=== PATIENT | female | born 1950 | race American Indian/Alaskan Native ===

== ENCOUNTER 2022-04-03 16:28 | Inpatient (IN) | payer MEDICARE ==
[2022-04-03] MEDS ORDERED: MORPHINE 4 MG/1 ML INJ IV ONE (18:19)
[2022-04-03] MEDS ORDERED: ONDANSETRON 4 MG/2 ML INJ IV ONE (18:19)
--- NOTE | 2022-04-03 18:25 | Emergency Department Report ---
ED General Adult HPI - General Chief complaint: Chest Pain Stated complaint: CHEST PAIN Time Seen by Provider: 04/03/22 17:48 Source: patient, EMS Mode of arrival: Stretcher Limitations: No Limitations - History of Present Illness Initial comments: Patient presents to the emergency department the chief complaint of left-sided chest pain that radiates into her left forearm. Patient states the pain started at 12:30 AM. Patient states prior to this chest pain she had nausea with vomiting. Patient also complains of diffuse abdominal pain that started 2 hours after the onset of chest pain. Patient states she has a history of diabetes and hypertension -: Sudden Location: chest Radiation: other (Left forearm) Severity scale (0 -10): 7 Quality: aching, crushing Consistency: constant Improves with: none Worsens with: none Associated Symptoms: nausea/vomiting - Related Data Allergies Allergy/AdvReac Type Severity Reaction Status Date / Time Iodinated Contrast Media AdvReac Unknown Verified 04/03/22 16:36 orange AdvReac Unknown Verified 04/03/22 16:36 ED Review of Systems ROS: Stated complaint: CHEST PAIN Other details as noted in HPI Comment: All other systems reviewed and negative Constitutional: denies: chills, fever Eyes: denies: eye pain, eye discharge, vision change ENT: denies: ear pain, throat pain Respiratory: denies: cough, shortness of breath, wheezing Cardiovascular: chest pain. denies: palpitations Endocrine: no symptoms reported Gastrointestinal: abdominal pain, nausea, vomiting. denies: diarrhea Genitourinary: denies: urgency, dysuria, discharge Musculoskeletal: denies: back pain, joint swelling, arthralgia Skin: denies: rash, lesions Neurological: denies: headache, weakness, paresthesias Psychiatric: denies: anxiety, depression Hematological/Lymphatic: denies: easy bleeding, easy bruising ED Past Medical Hx - Past Medical History Hx Hypertension: Yes Hx Diabetes: Yes - Surgical History Past Surgical History?: Yes Additional Surgical History: RIGHT SHOULDER SURGERY 2010 - Social History Smoking Status: Never Smoker Substance Use Type: None ED Physical Exam - General Limitations: No Limitations General appearance: alert, in no apparent distress - Head Head exam: Present: atraumatic, normocephalic - Eye Eye exam: Present: normal appearance, PERRL, EOMI - ENT ENT exam: Present: mucous membranes dry - Neck Neck exam: Present: normal inspection - Respiratory Respiratory exam: Present: normal lung sounds bilaterally. Absent: respiratory distress - Cardiovascular Cardiovascular Exam: Present: regular rate, normal rhythm. Absent: systolic murmur, diastolic murmur, rubs, gallop - GI/Abdominal GI/Abdominal exam: Present: soft, tenderness, normal bowel sounds, other (Tender to palpation diffusely). Absent: distended - Extremities Exam Extremities exam: Present: normal inspection - Back Exam Back exam: Present: normal inspection - Neurological Exam Neurological exam: Present: alert, oriented X3, CN II-XII intact. Absent: motor sensory deficit - Psychiatric Psychiatric exam: Present: normal affect, normal mood - Skin Skin exam: Present: warm, dry, intact, normal color. Absent: rash ED Course Vital Signs 04/03/22 04/03/22 04/03/22 16:34 17:27 18:13 Temperature 98.5 F 97.8 F 98.2 F Pulse Rate 96 H 94 H 96 H Respiratory 18 20 20 Rate Blood Pressure 144/77 Blood Pressure 143/68 144/77 139/75 [Left] O2 Sat by Pulse 100 98 96 Oximetry ED Medical Decision Making - Lab Data Result diagrams: 04/03/22 18:21 04/03/22 18:21 Lab Results 04/03/22 04/03/22 04/03/22 Range/Units 18:21 18:21 18:21 WBC 9.1 (4.5-11.0) K/mm3 RBC 4.87 (3.65-5.03) M/mm3 Hgb 13.2 (10.1-14.3) gm/dl Hct 41.2 (30.3-42.9) % MCV 85 (79-97) fl MCH 27 L (28-32) pg MCHC 32 (30-34) % RDW 14.4 (13.2-15.2) % Plt Count 270 (140-440) K/mm3 Lymph % (Auto) 14.4 (13.4-35.0) % Luna % (Auto) 2.6 (0.0-7.3) % Eos % (Auto) 0.1 (0.0-4.3) % Baso % (Auto) 0.6 (0.0-1.8) % Lymph # (Auto) 1.3 (1.2-5.4) K/mm3 Luna # (Auto) 0.2 (0.0-0.8) K/mm3 Eos # (Auto) 0.0 (0.0-0.4) K/mm3 Baso # (Auto) 0.1 (0.0-0.1) K/mm3 Seg Neutrophils % 82.3 H (40.0-70.0) % Seg Neutrophils # 7.5 (1.8-7.7) K/mm3 PT 13.3 (12.2-14.9) Sec. INR 0.89 (0.87-1.13) APTT 26.9 (24.2-36.6) Sec. Sodium 135 L (137-145) mmol/L Potassium 4.0 (3.6-5.0) mmol/L Chloride 99.9 (98-107) mmol/L Carbon Dioxide 23 (22-30) mmol/L Anion Gap 16 mmol/L BUN 16 (7-17) mg/dL Creatinine 0.6 (0.6-1.2) mg/dL Estimated GFR > 60 ml/min BUN/Creatinine Ratio 27 % Glucose 377 H (65-100) mg/dL Calcium 9.3 (8.4-10.2) mg/dL Total Bilirubin 0.40 (0.1-1.2) mg/dL AST 14 (5-40) units/L ALT 14 (7-56) units/L Alkaline Phosphatase 111 (35-129) units/L Troponin T 0.036 H (0.00-0.029) ng/mL NT-Pro-B Natriuret Pep (0-900) pg/mL Total Protein 7.9 (6.3-8.2) g/dL Albumin 4.1 (3.9-5) g/dL Albumin/Globulin Ratio 1.1 % Triglycerides 83 (2-149) mg/dL Cholesterol 207 H (50-199) mg/dL LDL Cholesterol Direct 123 (50-130) mg/dL HDL Cholesterol 69 H (40-59) mg/dL Cholesterol/HDL Ratio 3.00 % Lipase 13 (13-60) units/L 04/03/22 Range/Units 18:21 WBC (4.5-11.0) K/mm3 RBC (3.65-5.03) M/mm3 Hgb (10.1-14.3) gm/dl Hct (30.3-42.9) % MCV (79-97) fl MCH (28-32) pg MCHC (30-34) % RDW (13.2-15.2) % Plt Count (140-440) K/mm3 Lymph % (Auto) (13.4-35.0) % Luna % (Auto) (0.0-7.3) % Eos % (Auto) (0.0-4.3) % Baso % (Auto) (0.0-1.8) % Lymph # (Auto) (1.2-5.4) K/mm3 Luna # (Auto) (0.0-0.8) K/mm3 Eos # (Auto) (0.0-0.4) K/mm3 Baso # (Auto) (0.0-0.1) K/mm3 Seg Neutrophils % (40.0-70.0) % Seg Neutrophils # (1.8-7.7) K/mm3 PT (12.2-14.9) Sec. INR (0.87-1.13) APTT (24.2-36.6) Sec. Sodium (137-145) mmol/L Potassium (3.6-5.0) mmol/L Chloride (98-107) mmol/L Carbon Dioxide (22-30) mmol/L Anion Gap mmol/L BUN (7-17) mg/dL Creatinine (0.6-1.2) mg/dL Estimated GFR ml/min BUN/Creatinine Ratio % Glucose (65-100) mg/dL Calcium (8.4-10.2) mg/dL Total Bilirubin (0.1-1.2) mg/dL AST (5-40) units/L ALT (7-56) units/L Alkaline Phosphatase (35-129) units/L Troponin T (0.00-0.029) ng/mL NT-Pro-B Natriuret Pep 71.53 (0-900) pg/mL Total Protein (6.3-8.2) g/dL Albumin (3.9-5) g/dL Albumin/Globulin Ratio % Triglycerides (2-149) mg/dL Cholesterol (50-199) mg/dL LDL Cholesterol Direct (50-130) mg/dL HDL Cholesterol (40-59) mg/dL Cholesterol/HDL Ratio % Lipase (13-60) units/L - EKG Data -: EKG Interpreted by Me EKG shows normal: sinus rhythm Rate: normal - EKG Data Interpretation: other (Sinus rhythm with a QTC of 505/QTc [address] elevation) - Radiology Data Radiology results: report reviewed - Medical Decision Making Discussed results with patient Critical care attestation.: If time is entered above; I have spent that time in minutes in the direct care of this critically ill patient, excluding procedure time. ED Disposition Clinical Impression: Elevated troponin, Abdominal pain Disposition: HOME / SELF CARE / HOMELESS Is pt being admited?: Yes Does the pt Need Aspirin: Yes Condition: Fair Referrals: PRIMARY CARE, [Primary Care Provider] - 3-5 Days
--- NOTE | 2022-04-03 18:33 | XRay Report ---
CHEST 1 VIEW 04/03/2022 6:12 PM INDICATION / CLINICAL INFORMATION: Chest Pain. COMPARISON: 05/01/2012 FINDINGS: SUPPORT DEVICES: None. HEART / MEDIASTINUM: No significant abnormality. LUNGS / PLEURA: No significant pulmonary or pleural abnormality. No pneumothorax. ADDITIONAL FINDINGS: No significant additional findings. IMPRESSION: 1. No acute findings. Signer Name: Jermaine Minaya MD Signed: 04/03/2022 6:29 PM Workstation Name: [id number]
[2022-04-03 18:51] LABS: Basophils # (Auto) 0.1 K/mm3 (0.0-0.1); Basophils % (Auto) 0.6 % (0.0-1.8); Eosinophils % (Auto) 0.1 % (0.0-4.3); Hematocrit 41.2 % (30.3-42.9); Hemoglobin 13.2 gm/dl (10.1-14.3); Lymphocytes # (Auto) 1.3 K/mm3 (1.2-5.4); Lymphocytes % (Auto) 14.4 % (13.4-35.0); Mean Corpuscular HGB Conc 32 % (30-34); Mean Corpuscular Volume 85 fl (79-97); Monocytes # (Auto) 0.2 K/mm3 (0.0-0.8); Monocytes % (Auto) 2.6 % (0.0-7.3); Platelet Count 270 K/mm3 (140-440); Red Blood Count 4.87 M/mm3 (3.65-5.03); Red Cell Distribution Width 14.4 % (13.2-15.2)
[2022-04-03 19:02] LABS: INR 0.89 (0.87-1.13)
[2022-04-03 19:03] LABS: Partial Thromboplastin Time 26.9 Sec. (24.2-36.6)
[2022-04-03 19:19] LABS: Albumin 4.1 g/dL (3.9-5); Blood Urea Nitrogen 16 mg/dL (7-17); Calcium 9.3 mg/dL (8.4-10.2); Hemolysis Index 11
[2022-04-03 19:23] LABS: BUN/Creatinine Ratio 27
[2022-04-03 19:30] LABS: HDL Cholesterol 69 mg/dL (40-59); LDL Cholesterol,Direct 123 mg/dL (50-130)
--- NOTE | 2022-04-03 19:54 | Cat Scan Report ---
CT ABDOMEN AND PELVIS WITHOUT IV CONTRAST INDICATION: abdominal pain n/v. COMPARISON: None available. TECHNIQUE: All CT scans at this facility use dose modulation, automated exposure control, iterative reconstructi on or weight based dosing, when appropriate, to reduce radiation dose to as low as reasonably achieva ble. FINDINGS: Lung Bases: No significant abnormality. Skeletal System: No acute abnormality. ABDOMEN: Liver: No significant abnormality. Gallbladder: No significant abnormality. Bile Ducts: No significant abnormality. Adrenals: No significant abnormality. Right Kidney: No significant abnormality. Left Kidney: No significant abnormality. Pancreas: No significant abnormality. Spleen: No significant abnormality. Upper GI tract: No significant abnormality. Lymph Nodes: No significant adenopathy. Aorta: No significant abnormality. Additional Findings: No significant abnormality. PELVIS: Colon: No acute abnormality. Diverticulosis is noted. Urinary Bladder and Distal Ureters: No significant abnormality. Appendix: No significant abnormality. Lymph Nodes: No significant adenopathy. Additional Findings: None. IMPRESSION: 1. Within the limitations of non contrast technique, no acute process in the abdomen or pelvis. 2. Incidental findings, as above. Signer Name: Jermaine Minaya MD Signed: 04/03/2022 7:50 PM Workstation Name: [id number]
[2022-04-03 20:08] LABS: Alanine Aminotransferase 14 units/L (7-56)
[2022-04-03] MEDS ORDERED: hydrALAZINE 20 MG/1 ML INJ IV ONE (22:49)
[2022-04-03] MEDS ORDERED: ASPIRIN 81 MG TAB CHEW PO ONE (22:52)
[2022-04-03] MEDS ORDERED: HEPARIN 10,000 UNITS/10 ML VIAL IV PRN (23:03)
[2022-04-03] MEDS ORDERED: ACETAMINOPHEN 325 MG TAB PO PRN ×2 (23:08)
[2022-04-03] MEDS ORDERED: DEXTROSE 50% IN WATER (25GM) 50 ML SYRINGE IV PRN (23:08)
[2022-04-03] MEDS ORDERED: ONDANSETRON 4 MG/2 ML INJ IV PRN (23:08)
[2022-04-03] MEDS ORDERED: MORPHINE 4 MG/1 ML INJ IV PRN ×2 (23:08)
[2022-04-03] MEDS ORDERED: MAGNESIUM HYDROXIDE (MOM) ORAL LIQD UDC PO PRN (23:08)
[2022-04-03] MEDS ORDERED: NITROGLYCERIN 0.4 MG TAB SUBL SL PRN (23:08)
[2022-04-03] MEDS ORDERED: MORPHINE 2 MG/1 ML INJ IV PRN (23:08)
[2022-04-03] MEDS ORDERED: traMADol 50 MG TAB PO PRN (23:08)
--- NOTE | 2022-04-03 23:20 | History and Physical Report ---
History of Present Illness Date of examination: 04/03/22 Date of admission: 04/03/2022 Chief complaint: Chest Pain History of present illness: 72-year-old female with known history of hypertension and diabetes mellitus presented to the emergency room today complaining of chest pain. Chest pain is said to be left-sided and radiating towards the left upper extremity. Pain has been ongoing for the past few hours and has been no known relieving or exacerbating factor. She has had some associated nausea and vomiting . She also complained of some mild abdominal discomfort. Denies any hematuria or dysuria. Patient denies any headache or dizziness, denies any diaphoresis. Work-up in the emergency room today, lab reveals troponin of 0.036, EKG, chest x-ray, CT of the abdomen and pelvis were unremarkable. Urinalysis reveals UTI. Patient is being admitted for chest pain evaluation. Past History Past Medical History: diabetes, hypertension Past Surgical History: Other (RIGHT SHOULDER SURGERY 2010) Social history: no significant social history Family history: no significant family history Medications and Allergies Allergies Allergy/AdvReac Type Severity Reaction Status Date / Time Iodinated Contrast Media AdvReac Unknown Verified 04/03/22 16:36 orange AdvReac Unknown Verified 04/03/22 16:36 Active Meds: Active Medications Heparin Sodium (Porcine) (Heparin 10,000 Units/10 Ml Vial) 3,200 unit 40 unit/kg (3200 unit) IV Q6H PRN PRN Reason: Anti-Xa Assay < 0.1 units/ml Heparin Sodium/Sodium Chloride (Heparin/ 0.45% Nacl-25,000 Unit/500 Ml) 25,000 unit in 500 mls @ 20 mls/hr IV TITRATE RAMONA; Protocol Review of Systems Constitutional: no fever, no chills Ears, nose, mouth and throat: no nasal congestion, no sore throat Cardiovascular: chest pain, no palpitations Respiratory: shortness of breath, no cough Gastrointestinal: abdominal pain, nausea, vomiting, no diarrhea Genitourinary Female: no flank pain, no dysuria, no hematuria Musculoskeletal: no neck pain, no low back pain Integumentary: no rash, no pruritis Neurological: no headaches, no confusion Psychiatric: no anxiety, no depression Endocrine: no polyphagia, no polydipsia, no polyuria, no nocturia Exam - Constitutional Vitals: Temp Pulse Resp BP Pulse Ox 98.2 F 96 H 20 139/75 96 04/03/22 18:13 04/03/22 18:13 04/03/22 18:13 04/03/22 18:13 04/03/22 18:13 General appearance: Present: no acute distress, well-nourished - EENT Eyes: Present: PERRL, EOM intact. Absent: scleral icterus ENT: hearing intact, clear oral mucosa, dentition normal - Neck Neck: Present: supple, normal ROM - Respiratory Respiratory effort: normal Respiratory: bilateral: CTA - Cardiovascular Rhythm: regular Heart Sounds: Present: S1 & S2. Absent: gallop, systolic murmur, diastolic murmur, rub, click - Extremities Extremities: no ischemia, pulses intact, pulses symmetrical, No edema, normal temperature, normal color, Full ROM Peripheral Pulses: within normal limits - Abdominal General gastrointestinal: Present: soft, non-tender, non-distended, normal bowel sounds. Absent: mass - Integumentary Integumentary: Present: clear, warm, normal turgor. Absent: rash - Musculoskeletal Musculoskeletal: strength equal bilaterally - Psychiatric Psychiatric: appropriate mood/affect, intact judgment & insight, memory intact, cooperative - Neurologic Neurologic: CNII-XII intact, no focal deficits, moves all extremities HEART Score - HEART Score History: Moderately suspicious EKG: Non-specific Age: > 65 Risk factors: 1-2 risk factors Troponin: Troponin T 0.036 ng/mL (0.00-0.029) H 04/03/22 18:21 Troponin: 1-3x normal limit HEART Score: 6 Results - Labs CBC & Chem 7: 04/03/22 18:21 04/03/22 18:21 Labs: Abnormal lab results 04/03/22 04/03/22 Range/Units 18:21 18:21 MCH 27 L (28-32) pg Seg Neutrophils % 82.3 H (40.0-70.0) % Sodium 135 L (137-145) mmol/L Glucose 377 H (65-100) mg/dL Troponin T 0.036 H (0.00-0.029) ng/mL Cholesterol 207 H (50-199) mg/dL HDL Cholesterol 69 H (40-59) mg/dL Assessment and Plan Assessment: 1.Chest Pain 2.NSTEMI 3.Hypertension 4.D/Mellitus 5. UTI Plan: 1.Admit to telemetry.Check serial cardiac enzymes 2.Schedule for Echo,Stress test 3.Start on Sliding scale insulin. Monitor Accuchecks closely 4.Resume routine home medications. 5. Patient placed on empiric IV antibiotics for UTI. Will await culture results. DVT Prophylaxis:SQ Heparin Code Status: Full Code
[2022-04-03] MEDS ORDERED: HEPARIN/ 0.45% NACL DRIP 25,000 UNIT/500 ML BAG IV SCH (23:45)
[2022-04-04 06:09] LABS: Bilirubin,Urine Negative (Negative); Color,Urine Yellow (Yellow)
[2022-04-04 06:10] LABS: Blood,Urine Trace (Negative); Urobilinogen,Urine 0.2 mg/dL (<2.0)
[2022-04-04 06:15] LABS: Bacteria,Urine 4+ /HPF (Negative); Mucus,Urine FEW /HPF
[2022-04-04 06:38] LABS: Blood Urea Nitrogen 15 mg/dL (7-17); Calcium 8.7 mg/dL (8.4-10.2); Hemolysis Index 27
[2022-04-04 06:42] LABS: BUN/Creatinine Ratio 25
[2022-04-04] MEDS ORDERED: REGADENOSON 0.4 MG/5 ML INJ IV NR (08:47)
[2022-04-04] MEDS: cefTRIAXone/NS 1 GM/50 ML 1 GM/50 ML BAG IV SCH (08:49)
[2022-04-04] MEDS: INSULIN LISPRO 100 UNIT/ML SUB-Q SCH ×3 (08:50→21:00)
[2022-04-04] MEDS ORDERED: ASPIRIN EC 325 MG TAB PO SCH (10:00)
[2022-04-04] MEDS ORDERED: HEPARIN/NS 5000 UNIT/500ML 1,000 ML IR ONE (12:26)
[2022-04-04] MEDS ORDERED: VERAPAMIL 5 MG/2 ML INJ ONE (12:27)
[2022-04-04] MEDS ORDERED: LIDOCAINE (1%) 10 MG/1 ML VIAL 20 ML MDV ONE (12:28)
[2022-04-04] MEDS ORDERED: NITROGLYCERIN SYRINGE 3 ML ONE (12:28)
--- NOTE | 2022-04-04 12:45 | Consultation ---
History of Present Illness Consult date: 04/04/22 Consult reason: chest pain, elevated troponin History of present illness: Patient is a 72-year-old woman with hypertension and diabetes, who receives her medical care at [facility]. She has no prior cardiac history. She presented to the hospital with nonexertional chest pain, was evaluated and referred for admission. She describes symptoms which started with central and upper abdominal pain and cramping, followed by protracted vomiting, followed by chest pain radiating to the left arm. There was no diarrhea. There was no fever. Work-up in the hospital so far: ECG was normal sinus rhythm, normal ECG with no ST or T wave changes of ischemia. However, the troponin levels were elevated to the level of 0.14. Chest x-ray was normal-sized cardiac silhouette and clear lungs. Cardiology consultation was requested. Past History Past Medical History: diabetes, hypertension Past Surgical History: Other (RIGHT SHOULDER SURGERY 2010) Social history: no significant social history Family history: no significant family history Medications and Allergies Allergies Allergy/AdvReac Type Severity Reaction Status Date / Time Iodinated Contrast Media AdvReac Rash Verified 04/04/22 11:20 orange AdvReac Hives Verified 04/04/22 11:20 acidic fruits AdvReac Hives Uncoded 04/04/22 11:25 Home Medications Medication Instructions Recorded Confirmed Last Taken Type Carboxymethylcellulose Sodium 1 drop OU QDAY 04/04/22 04/04/22 Unknown History [Artificial Tears] Cholecalciferol Vit D3 [Vitamin D3 1,000 unit PO QDAY 04/04/22 04/04/22 04/03/22 History 1,000 UNIT TAB] Metformin HCl [metFORMIN] 1,000 mg PO QAM 04/04/22 04/04/22 04/03/22 History Multivitamin 1 tab PO QDAY 04/04/22 04/04/22 Unknown History NIFEdipine [Nifedipine ER] 120 mg PO QPM 04/04/22 04/04/22 04/03/22 History Triamterene/Hydrochlorothiazid 1 tab PO QDAY 04/04/22 04/04/22 04/03/22 History [Triamterene-Hctz 75-50 mg Tab] glipiZIDE [Glucotrol] 10 mg PO QDAY 04/04/22 04/04/22 04/03/22 History Active Meds: Active Medications Acetaminophen (Acetaminophen 325 Mg Tab) 650 mg PO Q4H PRN PRN Reason: Pain MILD(1-3)/Fever >100.5/PORTER Aspirin (Aspirin Ec 325 Mg Tab) 325 mg PO QDAY RAMONA Dextrose (Dextrose 50% In Water (25gm) 50 Ml Syringe) 50 ml IV Q30MIN PRN; Protocol PRN Reason: Hypoglycemia Heparin Sodium/Sodium Chloride (Heparin/ 0.45% Nacl-25,000 Unit/500 Ml) 25,000 unit in 500 mls @ 20 mls/hr IV TITRATE RAMONA; Protocol Last Admin: 04/04/22 00:33 Dose: 1,000 units/hr, 20 mls/hr Ceftriaxone Sodium (Rocephin/Ns 1 Gm/50 Ml) 1 gm in 50 mls @ 100 mls/hr IV Q24H RAMONA; Protocol Last Admin: 04/04/22 08:49 Dose: 100 mls/hr Sodium Chloride (Nacl 0.9% 500 Ml) 500 mls @ 50 mls/hr IV DIRECT RAMONA Stop: 04/04/22 22:59 Insulin Human Lispro (Insulin Lispro 100 Unit/Ml) 0 unit SUB-Q ACHS RAMONA; Protocol Last Admin: 04/04/22 08:50 Dose: 6 unit Magnesium Hydroxide (Magnesium Hydroxide (Mom) Oral Liqd Udc) 30 ml PO Q4H PRN PRN Reason: Constipation Morphine Sulfate (Morphine 2 Mg/1 Ml Inj) 2 mg IV Q4H PRN PRN Reason: Pain, Moderate (4-6) Last Admin: 04/04/22 00:34 Dose: 2 mg Morphine Sulfate (Morphine 4 Mg/1 Ml Inj) 4 mg IV Q4H PRN PRN Reason: Pain , Severe (7-10) Last Admin: 04/04/22 01:49 Dose: 4 mg Morphine Sulfate (Morphine 4 Mg/1 Ml Inj) 2 mg IV Q5MIN PRN PRN Reason: Chest Pain unrelieved by NTG Nitroglycerin (Nitroglycerin 0.4 Mg Tab Subl) 0.4 mg SL Q5M PRN PRN Reason: Chest Pain Ondansetron HCl (Ondansetron 4 Mg/2 Ml Inj) 4 mg IV Q8H PRN PRN Reason: Nausea And Vomiting Sodium Chloride (Sodium Chloride 0.9% 10 Ml Flush Syringe) 10 ml IV BID RAMONA Last Admin: 04/04/22 09:02 Dose: 10 ml Sodium Chloride (Sodium Chloride 0.9% 10 Ml Flush Syringe) 10 ml IV PRN PRN PRN Reason: LINE FLUSH Tramadol HCl (Tramadol 50 Mg Tab) 50 mg PO Q6H PRN PRN Reason: Pain, Moderate (4-6) Review of Systems Cardiovascular: chest pain, shortness of breath, no orthopnea, no palpitations, no rapid/irregular heart beat, no edema, no syncope, no lightheadedness Physical Examination Vital Signs Temp Pulse Resp BP Pulse Ox 98.5 F 96 H 18 143/68 100 04/03/22 16:34 04/03/22 16:34 04/03/22 16:34 04/03/22 16:34 04/03/22 16:34 General appearance: no acute distress HEENT: Positive: PERRL Neck: Positive: neck supple Cardiac: Positive: Reg Rate and Rhythm Lungs: Positive: clear to auscultation Neuro: Positive: Grossly Intact Abdomen: Positive: Soft Female genitourinary: deferred Skin: Positive: Clear Extremities: Absent: edema Results 04/03/22 18:21 04/04/22 05:21 Cardiac Enzymes 04/03/22 Range/Units 18:21 AST 14 (5-40) units/L Coagulation 04/03/22 Range/Units 18:21 PT 13.3 (12.2-14.9) Sec. INR 0.89 (0.87-1.13) APTT 26.9 (24.2-36.6) Sec. Lipids 04/03/22 Range/Units 18:21 Triglycerides 83 (2-149) mg/dL Cholesterol 207 H (50-199) mg/dL HDL Cholesterol 69 H (40-59) mg/dL Cholesterol/HDL Ratio 3.00 % CBC 04/03/22 Range/Units 18:21 WBC 9.1 (4.5-11.0) K/mm3 RBC 4.87 (3.65-5.03) M/mm3 Hgb 13.2 (10.1-14.3) gm/dl Hct 41.2 (30.3-42.9) % Plt Count 270 (140-440) K/mm3 Lymph # (Auto) 1.3 (1.2-5.4) K/mm3 [place] # (Auto) 0.2 (0.0-0.8) K/mm3 Eos # (Auto) 0.0 (0.0-0.4) K/mm3 Baso # (Auto) 0.1 (0.0-0.1) K/mm3 Comprehensive Metabolic Panel 04/03/22 04/04/22 Range/Units 18:21 05:21 Sodium 135 L 139 (137-145) mmol/L Potassium 4.0 4.0 (3.6-5.0) mmol/L Chloride 99.9 101.5 (98-107) mmol/L Carbon Dioxide 23 25 (22-30) mmol/L BUN 16 15 (7-17) mg/dL Creatinine 0.6 0.6 (0.6-1.2) mg/dL Glucose 377 H 312 H (65-100) mg/dL Calcium 9.3 8.7 (8.4-10.2) mg/dL AST 14 (5-40) units/L ALT 14 (7-56) units/L Alkaline Phosphatase 111 (35-129) units/L Total Protein 7.9 (6.3-8.2) g/dL Albumin 4.1 (3.9-5) g/dL EKG interpretations - Telemetry EKG Rhythm: Sinus Rhythm (Normal ECG) Assessment and Plan - Patient Problems (1) Chest pain Current Visit: Yes Status: Acute Plan to address problem: 72-year-old woman with hypertension and diabetes, who presents with chest pain. Chest pain is somewhat atypical, preceded by abdominal pain, nausea and vomiting, suggesting possible gastroesophageal reflux. ECGs were also normal. However, the troponin levels were elevated, suggesting a consideration of possible acute coronary syndrome. We have canceled the stress test that was ordered by the medical service. Instead, we will proceed with diagnostic cardiac catheterization and coronary angiography.
[2022-04-04] MEDS: SODIUM CHLORIDE 0.9% 500 ML 500 ML IV SCH ×2 (13:08→14:04)
--- NOTE | 2022-04-04 13:21 | Progress Note ---
Assessment and Plan Assessment and plan: #NSTEMI -troponin 0.036 -> 0.148 -Plan for cardiac cath today, continue PRN NG and heparin gtt for now -continue BB + statin -echocardiogram ordered -Cardiology following, assistance appreciated #Acute cystitis without hematuria -patient reported dysuria and UA shows pyuria, 4+ bacteria -UCx pending -Continue Rocephin #Hypertension -will resume home medications once reconciliation complete -goal SBP <160 while inpatient #Type 2 diabetes with hyperglycemia -patient takes oral medications at home -will continue with SSI and accuchecks while here #Advanced care planning -Disease education conducted, care plan discussed, diagnoses discussed, prognosis discussed, and patient acknowledges understanding with care plan -Time: +30 min History Interval history: Patient reports chest pain overnight that was relieved with nitroglycerin. She is currently chest pain-free and denies palpitations or shortness of breath. Patient examined by cardiology for cardiac cath. Hospitalist Physical - Physical exam Narrative exam: GENERAL: Well-developed well-nourished. In no acute distress. HEENT: Normocephalic. Atraumatic. NECK: Supple. CHEST/LUNGS: CTAB on room air HEART/CARDIOVASCULAR: RRR. No murmur, rubs or gallops appreciated. ABDOMEN: +BS. NT/ND. SKIN: No rashes noted. NEURO: No focal motor deficit. Follows all commands. MUSCULOSKELETAL: No joint effusion EXTREMITIES: No cyanosis, clubbing or edema. PSYCH: Cooperative. - Constitutional Vitals: Temp Pulse Resp BP Pulse Ox 97.7 F 78 18 157/87 99 04/04/22 07:45 04/04/22 07:45 04/04/22 03:58 04/04/22 07:45 04/04/22 10:00 General appearance: Present: no acute distress HEART Score - HEART Score EKG: Non-specific Age: > 65 Risk factors: 1-2 risk factors Troponin: Troponin T 0.118 ng/mL (0.00-0.029) H* D 04/04/22 08:25 Troponin: 1-3x normal limit Results - Labs CBC & Chem 7: 04/05/22 04:23 04/05/22 04:23 Labs: Laboratory Last Values WBC 9.1 K/mm3 (4.5-11.0) 04/03/22 18:21 RBC 4.87 M/mm3 (3.65-5.03) 04/03/22 18:21 Hgb 13.2 gm/dl (10.1-14.3) 04/03/22 18: Hct 41.2 % (30.3-42.9) 04/03/22 18:21 MCV 85 fl (79-97) 04/03/22 18:21 MCH 27 pg (28-32) L 04/03/22 18: MCHC 32 % (30-34) 04/03/22 18:21 RDW 14.4 % (13.2-15.2) 04/03/22 18:21 Plt Count 270 K/mm3 (140-440) 04/03/22 18:21 Lymph % (Auto) 14.4 % (13.4-35.0) 04/03/22 18: [place] % (Auto) 2.6 % (0.0-7.3) 04/03/22 18: Eos % (Auto) 0.1 % (0.0-4.3) 04/03/22 18: Baso % (Auto) 0.6 % (0.0-1.8) 04/03/22 18: Lymph # (Auto) 1.3 K/mm3 (1.2-5.4) 04/03/22 18: [place] # (Auto) 0.2 K/mm3 (0.0-0.8) 04/03/22 18:21 Eos # (Auto) 0.0 K/mm3 (0.0-0.4) 04/03/22 18: Baso # (Auto) 0.1 K/mm3 (0.0-0.1) 04/03/22 18: Seg Neutrophils % 82.3 % (40.0-70.0) H 04/03/22 18: Seg Neutrophils # 7.5 K/mm3 (1.8-7.7) 04/03/22 18: PT 13.3 Sec. (12.2-14.9) 04/03/22 18:21 INR 0.89 (0.87-1.13) 04/03/22 18: APTT 26.9 Sec. (24.2-36.6) 08/03/22 18:21 Heparin Anti-Xa Level < 0.10 U.I./ml (0.3-0.7) L 04/04/22 08:25 Sodium 139 mmol/L (137-145) 04/04/22 05:21 Potassium 4.0 mmol/L (3.6-5.0) 04/04/22 05:21 Chloride 101.5 mmol/L (98-107) 04/04/22 05:21 Carbon Dioxide 25 mmol/L (22-30) 04/04/22 05:21 Anion Gap 17 mmol/L 04/04/22 05:21 BUN 15 mg/dL (7-17) 04/04/22 05:21 Creatinine 0.6 mg/dL (0.6-1.2) 04/04/22 05:21 Estimated GFR > 60 ml/min 04/04/22 05:21 BUN/Creatinine Ratio 25 % 04/04/22 05:21 Glucose 312 mg/dL (65-100) H 04/04/22 05:21 POC Glucose 208 mg/dL (70-105) H 04/04/22 11:11 Calcium 8.7 mg/dL (8.4-10.2) 04/04/22 05:21 Total Bilirubin 0.40 mg/dL (0.1-1.2) 04/03/22 18:21 AST 14 units/L (5-40) 04/03/22 18:21 ALT 14 units/L (7-56) 04/03/22 18:21 Alkaline Phosphatase 111 units/L (35-129) 04/03/22 18:21 Troponin T 0.118 ng/mL (0.00-0.029) H* D 04/04/22 08:25 NT-Pro-B Natriuret Pep 71.53 pg/mL (0-900) 04/03/22 18:21 Total Protein 7.9 g/dL (6.3-8.2) 04/03/22 18:21 Albumin 4.1 g/dL (3.9-5) 04/03/22 18:21 Albumin/Globulin Ratio 1.1 % 04/03/22 18:21 Triglycerides 83 mg/dL (2-149) 04/03/22 18:21 Cholesterol 207 mg/dL (50-199) H 04/03/22 18:21 LDL Cholesterol Direct 123 mg/dL (50-130) 04/03/22 18:21 HDL Cholesterol 69 mg/dL (40-59) H 04/03/22 18:21 Cholesterol/HDL Ratio 3.00 % 04/03/22 18:21 Lipase 13 units/L (13-60) 04/03/22 18:21 Urine Color Yellow (Yellow) 04/04/22 05:30 Urine Turbidity Cloudy (Clear) 04/04/22 05:30 Urine pH 6.0 (5.0-7.0) 04/04/22 05:30 Ur Specific [place] 1.025 (1.003-1.030) 04/04/22 05:30 Urine Protein 30 mg/dl mg/dL (Negative) 04/04/22 05:30 Urine Glucose (UA) 1000 mg/dL (Negative) 04/04/22 05:30 Urine Ketones Negative mg/dL (Negative) 04/04/22 05:30 Urine Blood Trace (Negative) 04/04/22 05:30 Urine Nitrite Negative (Negative) 04/04/22 05:30 Urine Bilirubin Negative (Negative) 04/04/22 05:30 Urine Urobilinogen 0.2 mg/dL (<2.0) 04/04/22 05:30 Ur Leukocyte Esterase Trace (Negative) 04/04/22 05:30 Urine WBC (Auto) 98.0 /HPF (0.0-6.0) H 04/04/22 05:30 Urine RBC (Auto) 22.0 /HPF (0.0-6.0) 04/04/22 05:30 U Epithel Cells (Auto) 36.0 /HPF (0-13.0) H 04/04/22 05:30 Urine Bacteria (Auto) 4+ /HPF (Negative) 04/04/22 05:30 Urine Mucus Few /HPF 04/04/22 05:30 Urine Yeast (Budding) 2+ /HPF 04/04/22 05:30 Cabezas/IV: Voiding Method Toilet Active Medications - Current Medications Current Medications: Generic Name Dose Route Start Last Admin Trade Name Freq PRN Reason Stop Dose Admin Acetaminophen 650 mg 04/03/22 23:08 Acetaminophen 325 Mg Tab PO Q4H PRN Pain MILD(1-3)/Fever >100.5/PORTER Aspirin 325 mg 04/04/22 10:00 04/04/22 13:04 Aspirin Ec 325 Mg Tab PO 325 mg QDAY RAMONA Administration Dextrose 50 ml 04/03/22 23:08 Dextrose 50% In Water (25gm) 50 Ml Syringe IV Q30MIN PRN Hypoglycemia Protocol Heparin Sodium/Sodium Chloride 25,000 unit in 500 mls @ 20 mls/hr 04/03/22 23:45 04/04/22 00:33 Heparin/ 0.45% Nacl-25,000 Unit/500 Ml IV 1,000 units/hr TITRATE RAMONA 20 mls/hr Administration Protocol 1,000 UNITS/HR Ceftriaxone Sodium 1 gm in 50 mls @ 100 mls/hr 04/04/22 07:00 04/04/22 08:49 Rocephin/Ns 1 Gm/50 Ml IV 100 mls/hr Q24H RAMONA Administration Protocol Sodium Chloride 500 mls @ 50 mls/hr 04/04/22 13:00 04/04/22 13:08 Nacl 0.9% 500 Ml IV 04/04/22 22:59 50 mls/hr DIRECT RAMONA Administration Insulin Human Lispro 0 unit 04/04/22 07:30 04/04/22 08:50 Insulin Lispro 100 Unit/Ml SUB-Q 6 unit ACHS RAMONA Administration Protocol Magnesium Hydroxide 30 ml 04/03/22 23:08 Magnesium Hydroxide (Mom) Oral Liqd Udc PO Q4H PRN Constipation Morphine Sulfate 2 mg 04/03/22 23:08 04/04/22 00:34 Morphine 2 Mg/1 Ml Inj IV 2 mg Q4H PRN Administration Pain, Moderate (4-6) Morphine Sulfate 4 mg 04/03/22 23:08 04/04/22 01:49 Morphine 4 Mg/1 Ml Inj IV 4 mg Q4H PRN Administration Pain , Severe (7-10) Morphine Sulfate 2 mg 04/03/22 23:08 Morphine 4 Mg/1 Ml Inj IV Q5MIN PRN Chest Pain unrelieved by NTG Nitroglycerin 0.4 mg 04/03/22 23:08 Nitroglycerin 0.4 Mg Tab Subl SL Q5M PRN Chest Pain Ondansetron HCl 4 mg 04/03/22 23:08 Ondansetron 4 Mg/2 Ml Inj IV Q8H PRN Nausea And Vomiting Sodium Chloride 10 ml 04/04/22 10:00 04/04/22 09:02 Sodium Chloride 0.9% 10 Ml Flush Syringe IV 10 ml BID RAMONA Administration Sodium Chloride 10 ml 04/03/22 23:08 Sodium Chloride 0.9% 10 Ml Flush Syringe IV PRN PRN LINE FLUSH Tramadol HCl 50 mg 04/03/22 23:08 Tramadol 50 Mg Tab PO Q6H PRN Pain, Moderate (4-6) Nutrition/Malnutrition Assess - Dietary Evaluation Nutrition/Malnutrition Findings: Nutrition Notes Start: 04/04/22 12:19 Freq: Status: Active Protocol: Document 04/04/22 12:19 MARIO (Rec: 04/04/22 12:27 MARIO [id number]) Nutrition Notes Need for Assessment generated from: MD Order,Education Initial or Follow up Brief Note Current Diagnosis Diabetes,Hypertension Other Pertinent Diagnosis Chest Pain, NSTEMI, UTI. Current Diet Cardiac/Consistent Carbohydrates Diet (since L ). 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 Weight Status Obese Subjective/Other Information RD consult for nutrition education assessment. No reports available on Pt's PO intake of meals at the time , will assess at F/U. Pt is on Nasal Cannula, O2 saturation @ 99%, according to Physical Assessment History notes. Pt still in critical condition , not a candidate for Nutrition Education at the time, will assess feasibility on F/U. Percent of energy/protein needs met: Prescribed Cardiac/Consistent Carbohydrates Diet provides for energy/protein needs (1, 977 Kcal/86 g) during LOS. Nutrition Intervention Follow-Up By: 04/11/22 Additional Comments Nutrition education will be provided at F/U, if feasible. Continue monitoring food tolerance, %PO intake of meals , and BM.
[2022-04-04] MEDS ORDERED: diphenhydrAMINE 50 MG/ML VIAL ONE (13:50)
[2022-04-04] MEDS ORDERED: diphenhydrAMINE 50 MG/ML VIAL IV ONE (13:53)
[2022-04-04] MEDS ORDERED: fentaNYL 100 MCG/2 ML INJ ONE (14:01)
[2022-04-04] MEDS ORDERED: MIDAZOLAM 2 MG/2 ML INJ ONE (14:01)
[2022-04-04] MEDS: HEPARIN 10,000 UNITS/10 ML VIAL ONE ×2 (14:11→14:23)
[2022-04-04] MEDS ORDERED: HEPARIN/NS 5000 UNIT/500ML 500 ML IR ONE (14:40)
[2022-04-04] MEDS ORDERED: hydrALAZINE 20 MG/1 ML INJ ONE (14:48)
[2022-04-04] MEDS ORDERED: TICAGRELOR 90 MG TAB ONE (14:59)
[2022-04-04] MEDS ORDERED: HEPARIN 10,000 UNITS/10 ML VIAL ONE (14:59)
--- NOTE | 2022-04-04 15:04 | Event Note ---
Date: 04/04/22 Cardiac catheterization performed via the right radial approach, no complications. We found severe two-vessel disease with obstructive lesions in the mid LAD and mid obtuse marginal. Successful two-vessel coronary intervention with drug-eluting stents placed in the mid LAD and mid obtuse marginal. Patient will be placed on guideline directed medical therapy including dual antiplatelet therapy with baby aspirin and Brilinta.
[2022-04-04] MEDS ORDERED: SODIUM CHLORIDE 0.9% 1000 ML 1,000 ML IV SCH (15:15)
--- NOTE | 2022-04-04 15:39 | Cardiac Catherization Report ---
DATE OF SERVICE: 04/04/2022 CARDIAC CATHETERIZATION AND CORONARY ANGIOPLASTY REPORT REASON FOR PROCEDURE: The patient is a 72-year-old woman who presented with chest pain and elevated cardiac isoenzymes suggestive of a non-ST elevation myocardial infarction. A cardiac catheterization was recommended as part of an early invasive therapy. PROCEDURES: 1. Left heart catheterization. 2. Selective left and right coronary angiography. 3. Coronary angioplasty and stenting of the mid LAD. 4. Second vessel, coronary angioplasty and stenting of the mid obtuse marginal branch. 5. Sedation time start 1409, end 1447. DESCRIPTION OF PROCEDURE: The patient was prepped and draped in a sterile fashion after informed consent. The right radial cath site was prepped and draped after negative Sharan's test. The right radial artery was entered using Seldinger technique followed by placement of a 6-Azeri hydrophilic sheath. Routine radial cocktail was administered via the sheath. Selective left and right coronary angiography was performed using #3.5 left Dee and #4 right Dee. The angiograms were reviewed. CORONARY ANGIOGRAPHY: Left main coronary artery was angiographically normal. The left anterior descending artery contained a long, 95-99% stenosis of its mid segment. The circumflex artery consists of a large single obtuse marginal. There was an irregular 75-80% stenosis of the mid segment of the obtuse marginal. The right coronary artery was a large caliber, dominant vessel that contained mild diffuse ectasia and mild diffuse atherosclerosis with no significant obstructive lesions. CORONARY ANGIOPLASTY: The LAD was identified as the infarct related lesion, with additional severe lesion of the circumflex. We planned a 2-vessel intervention starting with the LAD. We selected a #3.5 XB guiding catheter and advanced to the left coronary ostium. A 0.014 inch Telecom Specialist 50 guidewire was directed into the LAD, across the lesional segment. The vessel was then predilated using a 3.0 mm balloon catheter. We then proceeded with a single, 3.0 x 22 mm drug-eluting stent covering the entire lesional segment and inflated to optimal pressures. Following stenting, there was an excellent angiographic result in the LAD, zero residual stenosis and DAO 3 flow. We then turned our attention to the circumflex artery. The Telecom Specialist 50 guidewire was withdrawn from the LAD and redirected into the circumflex. In a primary stenting maneuver, we deployed a 3.0 x 12 mm drug-eluting stent, covering the lesional segment of the obtuse marginal and inflated to optimal pressures. Following stenting, there was an excellent angiographic result, zero residual stenosis and DAO 3 flow maintained down the circumflex. Following the 2-vessel coronary intervention, the catheters and wires were removed, sheath removed and hemostasis achieved using a TR band. The patient was returned to the postprocedure unit in stable condition. There were no complications. CONCLUSION: 1. The patient was admitted with acute coronary syndrome, elevated troponin levels, non-ST elevation myocardial infarction. 2. Cardiac catheterization revealed severe 2-vessel coronary artery disease, 99% stenosis of the mid LAD and an 80% stenosis of the mid obtuse marginal branch of the circumflex. 3. Successful angioplasty and stenting of the mid LAD, with deployment of a 3.0 x 22 mm drug-eluting stent. 4. Successful second-vessel coronary intervention to the obtuse marginal with deployment of a 3.0 x 12 mm drug-eluting stent. RECOMMENDATIONS: The patient will be placed on guideline directed medical therapy including dual oral antiplatelet therapy. An echocardiogram will be ordered for left ventricular function and valvular function assessment. TID: [id number] RECEIPT: [id number] MARYAN
[2022-04-04] MEDS: LISINOPRIL 5 MG TAB PO SCH (17:32)
[2022-04-04] MEDS: METOPROLOL TARTRATE 50 MG TAB PO SCH ×2 (17:32→21:01)
--- NOTE | 2022-04-04 18:38 | Electrocardiograph Report ---
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
--- NOTE | 2022-04-04 18:45 | Electrocardiograph Report ---
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
--- NOTE | 2022-04-04 18:50 | Electrocardiograph Report ---
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
[2022-04-04] MEDS: TICAGRELOR 90 MG TAB PO SCH (21:00)
[2022-04-05 05:44] LABS: Basophils % (Auto) 0.6 % (0.0-1.8); Eosinophils # (Auto) 0.1 K/mm3 (0.0-0.4); Eosinophils % (Auto) 1.8 % (0.0-4.3); Hematocrit 37.4 % (30.3-42.9); Hemoglobin 11.9 gm/dl (10.1-14.3); Lymphocytes # (Auto) 2.6 K/mm3 (1.2-5.4); Lymphocytes % (Auto) 33.2 % (13.4-35.0); Mean Corpuscular HGB Conc 32 % (30-34); Mean Corpuscular Volume 85 fl (79-97); Monocytes # (Auto) 0.5 K/mm3 (0.0-0.8); Monocytes % (Auto) 6.8 % (0.0-7.3); Platelet Count 104 K/mm3 (140-440); Red Blood Count 4.39 M/mm3 (3.65-5.03); Red Cell Distribution Width 14.1 % (13.2-15.2)
[2022-04-05 06:05] LABS: Blood Urea Nitrogen 12 mg/dL (7-17); Calcium 8.7 mg/dL (8.4-10.2); Hemolysis Index 51
[2022-04-05 06:06] LABS: BUN/Creatinine Ratio 20
[2022-04-05] MEDS: INSULIN LISPRO 100 UNIT/ML SUB-Q SCH ×3 (07:30→12:30)
--- NOTE | 2022-04-05 08:37 | XRay Report ---
CHEST 1 VIEW 04/05/2022 7:16 AM INDICATION / CLINICAL INFORMATION: post pci. Chest pain COMPARISON: 04/03/22 FINDINGS: SUPPORT DEVICES: None. HEART / MEDIASTINUM: No significant abnormality. LUNGS / PLEURA: No significant pulmonary or pleural abnormality. No pneumothorax. ADDITIONAL FINDINGS: No significant additional findings. IMPRESSION: 1. No acute findings. Signer Name: Te Remy MD Signed: 04/05/2022 8:32 AM Workstation Name: [id number]
[2022-04-05] MEDS: cefTRIAXone/NS 1 GM/50 ML 1 GM/50 ML BAG IV SCH (09:01)
[2022-04-05] MEDS: TICAGRELOR 90 MG TAB PO SCH (09:02)
[2022-04-05] MEDS: METOPROLOL TARTRATE 50 MG TAB PO SCH (09:05)
[2022-04-05] MEDS ORDERED: ASPIRIN EC 81 MG TAB PO SCH (10:00)
--- NOTE | 2022-04-05 10:57 | Discharge Summary ---
Providers - Providers Date of Admission: 04/03/22 23:08 Date of discharge: 04/05/22 Attending physician: MOOK DE LA FUENTE MD 04/03/22 Consult to Cardiac Rehabilitation [CONS] Routine Reason For Exam: Phase I 04/03/22 23:08 Consult to Cardiology [CONS] Routine Consulting Provider: NOAH DE SANTIAGO Reason For Exam: CHEST PAIN Consult to Dietitian/Nutrition [CONS] Routine Physician Instructions: Reason For Exam: Reason for Consult: Diet education 04/04/22 Consult to Cardiac Rehabilitation [CONS] Routine Reason For Exam: post pci Primary care physician: RN ED Hospitalization Reason for admission: ACS rule out Condition: Fair Hospital course: Patient is a 72-year-old female with history of hypertension and diabetes who presented with sharp radiating left-sided chest pain. Urinalysis was suggestive of UTI. Her troponin increased from 0.036-0.148. Cardiology was consulted and patient was taken for cardiac catheterization. 2 drug-eluting stents were placed. Echocardiogram showed normal ejection fraction and no other acute findings. Patient remained chest pain-free and was discharged with DAPT and cardiology follow-up. Disposition: 01 HOME / SELF CARE / HOMELESS Final Discharge Diagnosis (Prints w/discharge instructions): NSTEMI. Coronary artery disease status post stent. Acute cystitis without hematuria. Hypertension. Type 2 diabetes with hyperglycemia Time spent for discharge: 35 minutes Core Measure Documentation - Palliative Care Palliative Care/ Comfort Measures: Not Applicable - Core Measures Any of the following diagnoses?: none Exam - Physical Exam Narrative exam: GENERAL: Well-developed well-nourished. In no acute distress. HEENT: Normocephalic. Atraumatic. NECK: Supple. CHEST/LUNGS: CTAB on room air HEART/CARDIOVASCULAR: RRR. No murmur, rubs or gallops appreciated. ABDOMEN: +BS. NT/ND. SKIN: No rashes noted. NEURO: No focal motor deficit. Follows all commands. MUSCULOSKELETAL: No joint effusion EXTREMITIES: No cyanosis, clubbing or edema. PSYCH: Cooperative. - Constitutional Vitals: Temp Pulse Resp BP Pulse Ox 98.0 F 81 16 116/60 98 04/05/22 07:27 04/05/22 07:27 04/05/22 04:15 04/05/22 07:27 04/05/22 10:01 Plan Care Plan Goals: Please follow-up with your primary care provider. Please follow-up with Dr. Schumacher, the avionics system engineer within the next 1 to 2 weeks. Please take all the new medications prescribed to you as we discussed. It is important that you take these medications to prevent issues with your stents. If you develop similar symptoms, please return to the ED. Follow up with: PRIMARY CARE, [Primary Care Provider] - 3-5 Days Prescriptions: AtorvaSTATin [Lipitor] 40 mg PO QHS 30 Days #30 tablet Sulfamethoxazole/Trimethoprim [Bactrim DS TAB] 1 each PO BID 5 Days #10 tab Ticagrelor [Brilinta] 90 mg PO BID 30 Days #60 tablet Aspirin EC [Halfprin EC] 81 mg PO QDAY 30 Days #30 tablet Metoprolol [Lopressor TAB] 50 mg PO BID 30 Days #60 tablet Nitroglycerin [Nitrostat] 0.4 mg SL Q5M PRN 30 Days #30 tablet PRN Reason: Chest Pain lisinopriL [Zestril TAB] 5 mg PO QDAY 30 Days #30 tablet
[2022-04-05 11:19] VITALS: BP 132/74
[2022-04-05] MEDS: LISINOPRIL 5 MG TAB PO SCH (12:42)
--- NOTE | 2022-04-05 14:08 | Progress Note ---
Assessment and Plan - Patient Problems (1) Chest pain Current Visit: Yes Status: Acute Plan to address problem: 72-year-old woman with hypertension and diabetes, who presented with chest pain and elevated troponin level suggestive of acute coronary syndrome with non-ST elevation myocardial infarct. Status post cardiac catheterization with two- vessel coronary intervention to the mid LAD and mid obtuse marginal. Echocardiogram showed well-preserved left ventricular systolic function with ejection fraction 55 to 60%. Patient is stable for cardiac discharge on recommended guideline therapy including baby aspirin and Brilinta. Subjective Date of service: 04/05/22 Principal diagnosis: Acute coronary syndrome, non-ST elevation myocardial infarct Interval history: Patient looks and feels better, symptoms have resolved following two-vessel coronary intervention done yesterday. Right wrist cath site is well-healed, normal radial pulses. Objective Vital Signs Temp Pulse Resp BP Pulse Ox 04/05/22 12:42 69 132/74 04/05/22 12:00 18 98 04/05/22 11:17 98.1 F 69 132/74 99 04/05/22 10:01 98 04/05/22 07:27 98.0 F 81 116/60 98 04/05/22 04:15 98.8 F 83 16 130/62 92 04/05/22 00:07 98 04/04/22 23:16 98.5 F 73 16 140/82 99 04/04/22 20:00 74 04/04/22 19:17 98.7 F 79 16 139/81 98 04/04/22 17:32 86 159/84 04/04/22 16:05 98.2 F 87 102/55 95 - Physical Examination HEENT: Positive: PERRL Neck: Positive: neck supple Cardiac: Positive: Reg Rate and Rhythm Lungs: Positive: clear to auscultation Neuro: Positive: Grossly Intact Abdomen: Positive: Soft Skin: Positive: Clear Extremities: Absent: edema - Labs and Meds CBC 04/05/22 Range/Units 04:23 WBC 7.7 (4.5-11.0) K/mm3 RBC 4.39 (3.65-5.03) M/mm3 Hgb 11.9 (10.1-14.3) gm/dl Hct 37.4 (30.3-42.9) % Plt Count 104 L (140-440) K/mm3 Lymph # (Auto) 2.6 (1.2-5.4) K/mm3 [place] # (Auto) 0.5 (0.0-0.8) K/mm3 Eos # (Auto) 0.1 (0.0-0.4) K/mm3 Baso # (Auto) 0.0 (0.0-0.1) K/mm3 Comprehensive Metabolic Panel 04/05/22 Range/Units 04:23 Sodium 140 (137-145) mmol/L Potassium 3.9 (3.6-5.0) mmol/L Chloride 104.3 (98-107) mmol/L Carbon Dioxide 22 (22-30) mmol/L BUN 12 (7-17) mg/dL Creatinine 0.6 (0.6-1.2) mg/dL Glucose 191 H (65-100) mg/dL Calcium 8.7 (8.4-10.2) mg/dL
--- NOTE | 2022-04-05 14:26 | Electrocardiograph Report ---
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
== END 2022-04-05 15:30 | disposition home or self-care (01) | DRG 246 ==
LOC: ED 16:28 → 4A 23:08
PROVIDERS: ADMIT Internal Medicine Geriatric Medicine; ATTEND Student in an Organized Health Care Education/Training Program
PROC: 027135Z Dilation of Coronary Artery, Two Arteries with Two Drug-eluting Intraluminal Devices, Percutaneous Approach (ICD-10-PCS; principal; 2022-04-04)
PROC: 4A023N7 Measurement of Cardiac Sampling and Pressure, Left Heart, Percutaneous Approach (ICD-10-PCS; 2022-04-04)
PROC: B2111ZZ Fluoroscopy of Multiple Coronary Arteries using Low Osmolar Contrast (ICD-10-PCS; 2022-04-04)
DX: I21.4 Non-ST elevation (NSTEMI) myocardial infarction (principal); I50.31 Acute diastolic (congestive) heart failure; N30.00 Acute cystitis without hematuria; I11.0 Hypertensive heart disease with heart failure; R77.8 Other specified abnormalities of plasma proteins; E11.65 Type 2 diabetes mellitus with hyperglycemia; Z91.041 Radiographic dye allergy status; Z91.018 Allergy to other foods
CPT/HCPCS: 36415; 71045; 74176; 80048; 80053; 80061; 81001; 82962; 83690; 83880; 84484; 85025; 85347; 85520; 85610; 85730; 87086; 92928; 92929; 93005; 93306; 93458; G0378; J1815; J3490; Q9967; C1725; C1769; C1874; C1887; C1894; C8929; C9600; C9601; J0360; J0696; J1200; J1644; J2250; J2270; J2405; J3010; J7030; J7040